=== PATIENT | male | born 1945 | race Caucasian/White ===

== ENCOUNTER 2017-07-18 01:12 | Inpatient (IN) | payer MEDICAID ==
[2017-07-18] MEDS: ACETAMINOPHEN 325 MG TAB PO (02:23)
[2017-07-18 02:27] LABS: ADD MAN DIFF? NO
[2017-07-18 02:33] LABS: ABNORMAL IP MESSAGE 1; BASOPHILS % 0.2 % (0.0-2.0); EOSINOPHILS # 0.1 10^3/ul (0.0-0.5); EOSINOPHILS % 0.3 % (0.0-7.0); HEMATOCRIT 38.6 % (42.0-52.0); HEMOGLOBIN 13.2 g/dl (14.0-18.0); LYMPHOCYTES # 0.8 10^3/ul (0.8-2.9); LYMPHOCYTES % 4.8 % (15.0-51.0); MEAN CORPUSCULAR HEMOGLOBIN 24.7 pg (29.0-33.0); MEAN CORPUSCULAR HGB CONC 34.2 g/dl (32.0-37.0); MEAN CORPUSCULAR VOLUME 72.1 fl (82.0-101.0); MEAN PLATELET VOLUME 10.1 fl (7.4-10.4); MONOCYTE # 1.6 10^3/ul (0.3-0.9); MONOCYTES % 9.7 % (0.0-11.0); NEUTROPHIL # 13.5 10^3/ul (1.6-7.5); NEUTROPHILS % 84.6 % (39.0-77.0); PLATELET COUNT 244 10^3/UL (140-415); POSITIVE DIFF @See below; RED BLOOD COUNT 5.35 10^6/ul (4.70-6.10); RED CELL DISTRIBUTION WIDTH 12.4 % (11.5-14.5)
[2017-07-18 02:46] LABS: INR 0.98; PROTIME 13.1 Sec (11.9-14.9)
[2017-07-18 02:47] LABS: PARTIAL THROMBOPLASTIN TIME 30.9 Sec (25.0-35.0)
[2017-07-18 02:51] LABS: ALANINE AMINOTRANSFERASE 51 IU/L (13-69); ALBUMIN 4.5 g/dl (3.3-4.9); ALBUMIN/GLOBULIN RATIO 1.12; ALKALINE PHOSPHATASE 195 IU/L (42-121); ANION GAP 21 (8-16); ASPARTATE AMINO TRANSFERASE 56 IU/L (15-46); BILIRUBIN,INDIRECT 0.6 mg/dl (0-1.1); BILIRUBIN,TOTAL 0.6 mg/dl (0.2-1.3); BLOOD UREA NITROGEN 34 mg/dl (7-20); CARBON DIOXIDE 26 mmol/L (21-31); CHLORIDE 97 mmol/L (97-110); CREATININE 2.41 mg/dl (0.61-1.24); GLUCOSE 212 mg/dl (70-220); SODIUM 141 mmol/L (135-144); TOTAL PROTEIN 8.5 g/dl (6.1-8.1)
[2017-07-18 02:53] LABS: LACTIC ACID 1.9 mmol/L (0.5-2.0)
[2017-07-18 03:02] LABS: TROPONIN-I 0.022 ng/ml (0.00-0.12)
[2017-07-18 03:11] LABS: UR BACTERIA FEW /HPF (NONE SEEN); UR RBC 1 /HPF (0-5); UR WBC 5 /HPF (0-5)
[2017-07-18 03:29] LABS: ADD UMIC YES; UR ASCORBIC ACID NEGATIVE (NEGATIVE); UR BILIRUBIN (Dip) NEGATIVE (NEGATIVE); UR BLOOD (Dip) 2+ mg/dL (NEGATIVE); UR CLARITY SLIGHTLY CLOUDY (CLEAR); UR COLOR YELLOW (YELLOW); UR GLUCOSE (Dip) 1+ mg/dL (NEGATIVE); UR KETONES (Dip) NEGATIVE (NEGATIVE); UR LEUKOCYTE ESTERASE (Dip) NEGATIVE Leu/ul (NEGATIVE); UR NITRITE (Dip) NEGATIVE (NEGATIVE); UR SPECIFIC GRAVITY (Dip) 1.014 (1.003-1.030); UR TOTAL PROTEIN (Dip) 2+ mg/dl (NEGATIVE); UR UROBILINOGEN (Dip) 2+ mg/dL (NEGATIVE)
[2017-07-18] MEDS ORDERED: POTASSIUM CHLORIDE (SR) 20 MEQ TAB PO (05:08)
[2017-07-18] MEDS: CEFEPIME 1GM/50 ML (PMX) 50 ML IVPB (05:09)
[2017-07-18] MEDS: SOD CHLORIDE 0.9% 1,000 ML IV (05:10)
[2017-07-18] MEDS ORDERED: morphine 2 MG INJ IV (05:30)
[2017-07-18] MEDS ORDERED: ONDANSETRON 4 MG INJ IV (05:30)
[2017-07-18] MEDS ORDERED: POTASSIUM CHLORIDE 50 ML IVPB (05:30)
[2017-07-18] MEDS ORDERED: NITROGLYCERIN (SL) 0.4 MG TAB SL (05:30)
[2017-07-18] MEDS: POTASSIUM CHLORIDE 10 MEQ in SOD CHLORIDE 0.9% 50 ML IV (05:30)
[2017-07-18] MEDS: VANCOMYCIN 1 GM (PMX) 250 ML IVPB (05:59)
[2017-07-18 06:39] LABS: LACTIC ACID 1.4 mmol/L (0.5-2.0)
[2017-07-18 06:53] LABS: B-TYPE NATRIURETIC PEPTIDE 300 PG/ML (0-125)
[2017-07-18] MEDS: NACL 0.9% 3 ML SYG IV (06:58)
[2017-07-18] MEDS: AZITHROMYCIN 500MG/NS (PMX) 250 ML IVPB (07:30)
[2017-07-18] MEDS: CEFTRIAXONE 1 GM/50 ML (PMX) 50 ML IVPB (07:30)
[2017-07-18 09:05] LABS: IRON 29 ug/dl (35-150)
[2017-07-18 09:14] LABS: % IRON SATURATION 13 % SAT (22-52); TOTAL IRON BINDING CAPACITY 218 ug/dl (241-421)
[2017-07-18 09:55] LABS: LACTIC ACID 1.9 mmol/L (0.5-2.0)
[2017-07-18] MEDS ORDERED: ACETAMINOPHEN 325 MG TAB (09:55)
[2017-07-18 13:08] LABS: MAGNESIUM 2.3 mg/dl (1.7-2.5)
[2017-07-18] MEDS ORDERED: GLUCOSE GEL 15 GRAM TUBE PO ×2 (19:30)
[2017-07-18] MEDS ORDERED: GLUCOSE GEL 15 GRAM TUBE BUCCAL (19:30)
[2017-07-18] MEDS ORDERED: GLUCAGON 1 MG INJ IM (19:30)
[2017-07-18] MEDS ORDERED: DEXTROSE 50% 50 ML SYRINGE IV ×2 (19:30)
[2017-07-18] MEDS: INSULIN ASPART [NOVOLOG] 3 ML PEN SC (20:57)
[2017-07-18] MEDS: SOD FERRIC GLUC COMPLX 125 MG in SOD CHLORIDE 0.9% 100 ML IVPB (23:18)
[2017-07-19 06:34] LABS: ADD MAN DIFF? NO
[2017-07-19 06:37] LABS: WHITE BLOOD COUNT 14.4 10^3/ul (4.8-10.8)
[2017-07-19 06:37] LABS: BASOPHIL # 0.1 10^3/ul (0.0-0.1); BASOPHILS % 0.4 % (0.0-2.0); EOSINOPHILS # 0.2 10^3/ul (0.0-0.5); EOSINOPHILS % 1.1 % (0.0-7.0); HEMATOCRIT 39.7 % (42.0-52.0); HEMOGLOBIN 13.3 g/dl (14.0-18.0); LYMPHOCYTES # 1.3 10^3/ul (0.8-2.9); LYMPHOCYTES % 9.2 % (15.0-51.0); MEAN CORPUSCULAR HEMOGLOBIN 24.3 pg (29.0-33.0); MEAN CORPUSCULAR HGB CONC 33.5 g/dl (32.0-37.0); MEAN CORPUSCULAR VOLUME 72.6 fl (82.0-101.0); MEAN PLATELET VOLUME 10.2 fl (7.4-10.4); MONOCYTE # 1.1 10^3/ul (0.3-0.9); MONOCYTES % 7.6 % (0.0-11.0); NEUTROPHIL # 11.7 10^3/ul (1.6-7.5); NEUTROPHILS % 81.1 % (39.0-77.0); PLATELET COUNT 274 10^3/UL (140-415); RED BLOOD COUNT 5.47 10^6/ul (4.70-6.10); RED CELL DISTRIBUTION WIDTH 12.3 % (11.5-14.5)
[2017-07-19 06:53] LABS: MAGNESIUM 2.5 mg/dl (1.7-2.5)
[2017-07-19 07:12] LABS: ALANINE AMINOTRANSFERASE 48 IU/L (13-69); ALBUMIN 3.9 g/dl (3.3-4.9); ALKALINE PHOSPHATASE 199 IU/L (42-121); ANION GAP 15 (8-16); ASPARTATE AMINO TRANSFERASE 46 IU/L (15-46); BILIRUBIN,INDIRECT 0.5 mg/dl (0-1.1); BILIRUBIN,TOTAL 0.5 mg/dl (0.2-1.3); BLOOD UREA NITROGEN 29 mg/dl (7-20); CALCIUM 8.7 mg/dl (8.4-10.2); CARBON DIOXIDE 29 mmol/L (21-31); CHLORIDE 102 mmol/L (97-110); CHOL/HDL RATIO 3.6 RATIO; CHOLESTEROL 128 mg/dl (100-200); CREATININE 1.85 mg/dl (0.61-1.24); GLUCOSE 185 mg/dl (70-220); HDL CHOLESTEROL 35 mg/dl (31-75); LDL CHOLESTEROL,CALCULATED 68 mg/dl; POTASSIUM 3.1 mmol/L (3.5-5.1); SODIUM 143 mmol/L (135-144); TOTAL PROTEIN 7.8 g/dl (6.1-8.1); TRIGLYCERIDES 127 mg/dl (0-149)
[2017-07-19 07:26] LABS: HEMOGLOBIN A1C 9.7 % (0-5.9)
[2017-07-19] MEDS: INSULIN ASPART [NOVOLOG] 3 ML PEN SC ×4 (08:55→20:54)
[2017-07-19] MEDS ORDERED: INFLUENZA VIRUS VACCINE 0.5 ML SYG IM* (09:00)
[2017-07-19] MEDS: AZITHROMYCIN 500MG/NS (PMX) 250 ML IVPB (09:56)
[2017-07-19] MEDS: CEFTRIAXONE 1 GM/50 ML (PMX) 50 ML IVPB (09:56)
[2017-07-19] MEDS: LACTATED RINGER'S 500 ML IV (10:30)
[2017-07-19] MEDS: LINAGLIPTIN 5 MG TABLET PO (12:30)
[2017-07-19] MEDS: POTASSIUM CHLORIDE (SR) 20 MEQ TAB PO (12:30)
[2017-07-19 14:07] LABS: THYROID STIMULATING HORMONE 0.353 MIU/L (0.465-4.680)
[2017-07-19] MEDS: SOD FERRIC GLUC COMPLX 125 MG in SOD CHLORIDE 0.9% 100 ML IVPB (17:33)
[2017-07-20 06:47] LABS: MAGNESIUM 2.4 mg/dl (1.7-2.5)
[2017-07-20 06:52] LABS: ANION GAP 16 (8-16); BLOOD UREA NITROGEN 27 mg/dl (7-20); CALCIUM 8.3 mg/dl (8.4-10.2); CARBON DIOXIDE 25 mmol/L (21-31); CHLORIDE 105 mmol/L (97-110); CREATININE 1.72 mg/dl (0.61-1.24); GLUCOSE 153 mg/dl (70-220); POTASSIUM 3.1 mmol/L (3.5-5.1); SODIUM 143 mmol/L (135-144)
[2017-07-20] MEDS: INSULIN ASPART [NOVOLOG] 3 ML PEN SC ×4 (08:10→20:55)
[2017-07-20] MEDS: AZITHROMYCIN 500MG/NS (PMX) 250 ML IVPB (08:53)
[2017-07-20] MEDS: LINAGLIPTIN 5 MG TABLET PO (08:54)
[2017-07-20] MEDS: CEFTRIAXONE 1 GM/50 ML (PMX) 50 ML IVPB (09:32)
[2017-07-20] MEDS: POTASSIUM CHLORIDE 100 ML IVPB (11:29)
[2017-07-20] MEDS: SALMETEROL/FLUTICASONE 250/50 INHA INH ×2 (16:10→20:52)
[2017-07-20] MEDS: SOD FERRIC GLUC COMPLX 125 MG in SOD CHLORIDE 0.9% 100 ML IVPB (16:12)
[2017-07-21 01:03] LABS: ADD UMIC YES; UR ASCORBIC ACID NEGATIVE (NEGATIVE); UR BILIRUBIN (Dip) NEGATIVE (NEGATIVE); UR BLOOD (Dip) 2+ mg/dL (NEGATIVE); UR CLARITY CLEAR (CLEAR); UR COLOR STRAW (YELLOW); UR GLUCOSE (Dip) 1+ mg/dL (NEGATIVE); UR KETONES (Dip) NEGATIVE (NEGATIVE); UR LEUKOCYTE ESTERASE (Dip) NEGATIVE Leu/ul (NEGATIVE); UR NITRITE (Dip) NEGATIVE (NEGATIVE); UR RBC 0 /HPF (0-5); UR SPECIFIC GRAVITY (Dip) 1.008 (1.003-1.030); UR TOTAL PROTEIN (Dip) NEGATIVE (NEGATIVE); UR UROBILINOGEN (Dip) 1+ mg/dL (NEGATIVE); UR WBC 0 /HPF (0-5)
[2017-07-21 03:12] LABS: SODIUM,URINE RANDOM 70 mmol/L (30-90)
[2017-07-21] MEDS: CEFTRIAXONE 1 GM/50 ML (PMX) 50 ML IVPB (06:38)
[2017-07-21 08:04] LABS: MAGNESIUM 2.5 mg/dl (1.7-2.5)
[2017-07-21] MEDS: SALMETEROL/FLUTICASONE 250/50 INHA INH ×2 (08:23→22:37)
[2017-07-21] MEDS: INSULIN ASPART [NOVOLOG] 3 ML PEN SC ×4 (08:24→21:00)
[2017-07-21] MEDS: LINAGLIPTIN 5 MG TABLET PO (08:25)
[2017-07-21] MEDS: FUROSEMIDE 20 MG INJ IV (14:28)
[2017-07-21 14:33] LABS: HEMOGLOBIN A1C 9.8 % (0-5.9)
[2017-07-21 16:33] LABS: ANION GAP 14 (8-16); BLOOD UREA NITROGEN 27 mg/dl (7-20); CALCIUM 8.5 mg/dl (8.4-10.2); CARBON DIOXIDE 30 mmol/L (21-31); CHLORIDE 100 mmol/L (97-110); CREATININE 1.79 mg/dl (0.61-1.24); GLUCOSE 227 mg/dl (70-220); POTASSIUM 3.2 mmol/L (3.5-5.1); SODIUM 141 mmol/L (135-144)
[2017-07-21] MEDS: SOD FERRIC GLUC COMPLX 125 MG in SOD CHLORIDE 0.9% 100 ML IVPB (17:26)
[2017-07-22] MEDS: SALMETEROL/FLUTICASONE 250/50 INHA INH ×2 (08:20→21:08)
[2017-07-22] MEDS: LINAGLIPTIN 5 MG TABLET PO (08:21)
[2017-07-22] MEDS: CEFTRIAXONE 1 GM/50 ML (PMX) 50 ML IVPB (08:21)
[2017-07-22] MEDS: INSULIN ASPART [NOVOLOG] 3 ML PEN SC ×6 (08:29→21:00)
[2017-07-22 08:49] LABS: HEMATOCRIT 39.7 % (42.0-52.0); HEMOGLOBIN 13.3 g/dl (14.0-18.0); MEAN CORPUSCULAR HEMOGLOBIN 24.6 pg (29.0-33.0); MEAN CORPUSCULAR HGB CONC 33.5 g/dl (32.0-37.0); MEAN CORPUSCULAR VOLUME 73.4 fl (82.0-101.0); MEAN PLATELET VOLUME 9.7 fl (7.4-10.4); PLATELET COUNT 364 10^3/UL (140-415); POSITIVE DIFF @See below; RED BLOOD COUNT 5.41 10^6/ul (4.70-6.10); RED CELL DISTRIBUTION WIDTH 12.6 % (11.5-14.5)
[2017-07-22 08:49] LABS: WHITE BLOOD COUNT 11.2 10^3/ul (4.8-10.8)
[2017-07-22 08:53] LABS: ADD MAN DIFF? YES
[2017-07-22 09:11] LABS: MAGNESIUM 2.4 mg/dl (1.7-2.5)
[2017-07-22 09:13] LABS: ANION GAP 18 (8-16); BLOOD UREA NITROGEN 30 mg/dl (7-20); CALCIUM 8.8 mg/dl (8.4-10.2); CARBON DIOXIDE 28 mmol/L (21-31); CHLORIDE 100 mmol/L (97-110); GLUCOSE 179 mg/dl (70-220); POTASSIUM 3.5 mmol/L (3.5-5.1); SODIUM 142 mmol/L (135-144)
[2017-07-22 10:37] LABS: ANISOCYTOSIS 2+ (0-0); BAND NEUTROPHILS #M 0.7 10^3/ul (0.0-0.6); BAND NEUTROPHILS % (M) 7 % (0-4); BASOPHIL #M 0.2 10^3/ul (0.0-0.0); BASOPHILS % (M) 2 % (0-2); EOSINOPHILS % (M) 3 % (0-7); LYMPHOCYTES #M 2.4 10^3/ul (0.8-2.9); LYMPHOCYTES % (M) 22 % (15-51); MICROCYTOSIS 2+ (0-0); MONOCYTE #M 1.1 10^3/ul (0.3-0.9); MONOCYTES % (M) 10 % (0-11); PLATELET ESTIMATE NORMAL; POIKILOCYTOSIS 1+ (0-0); POLYCHROMASIA 3+ (0-0); SEG NEUT #M 6.4 10^3/ul (1.6-7.5); SEGMENTED NEUTROPHILS (M) % 56 % (39-77); SMUDGE%M 4 % (0-0)
[2017-07-22] MEDS ORDERED: INSULIN GLARGINE [LANtus] 3 ML PEN SC (12:00)
[2017-07-22] MEDS: INSULIN GLARGINE [LANtus] 3 ML PEN SC (12:08)
[2017-07-22 16:51] LABS: CREATININE, RANDOM URINE 34 mg/dL (20-370); MICROALBUMIN 5.6 mg/dL; MICROALBUMIN/CREATININE RATIO 165 (<30)
[2017-07-22] MEDS: SOD FERRIC GLUC COMPLX 125 MG in SOD CHLORIDE 0.9% 100 ML IVPB (17:16)
[2017-07-23] MEDS: CEFTRIAXONE 1 GM/50 ML (PMX) 50 ML IVPB (08:25)
[2017-07-23] MEDS: SALMETEROL/FLUTICASONE 250/50 INHA INH (08:26)
[2017-07-23] MEDS: LINAGLIPTIN 5 MG TABLET PO (08:26)
[2017-07-23] MEDS: INSULIN GLARGINE [LANtus] 3 ML PEN SC (08:37)
[2017-07-23] MEDS: INSULIN ASPART [NOVOLOG] 3 ML PEN SC ×4 (08:38→11:49)
[2017-07-23 11:14] LABS: MAGNESIUM 2.5 mg/dl (1.7-2.5)
== END 2017-07-23 16:45 | disposition home or self-care (01) | DRG 871 ==
LOC: E/R 01:12 → MS4 05:08
DX: A41.9 Sepsis, unspecified organism (principal); J18.9 Pneumonia, unspecified organism; J96.00 Acute respiratory failure, unspecified whether with hypoxia or hypercapnia; N17.9 Acute kidney failure, unspecified; I50.30 Unspecified diastolic (congestive) heart failure; I13.0 Hypertensive heart and chronic kidney disease with heart failure and stage 1 through stage 4 chronic kidney disease, or unspecified chronic kidney disease; E11.21 Type 2 diabetes mellitus with diabetic nephropathy; D63.1 Anemia in chronic kidney disease; E86.0 Dehydration; E87.6 Hypokalemia; E11.65 Type 2 diabetes mellitus with hyperglycemia; E11.22 Type 2 diabetes mellitus with diabetic chronic kidney disease; N18.9 Chronic kidney disease, unspecified
CPT/HCPCS: 36415; 71045; 76775; 80048; 80053; 80061; 81001; 82043; 82728; 82962; 83036; 83540; 83605; 83735; 83880; 84100; 84300; 84443; 84484; 85025; 85610; 85730; 87040; 87086; 87400; 93005; 93306; 96374; 96375; 99291-25